=== PATIENT | female | born 1975 | race Hispanic/Latino ===

== ENCOUNTER 2017-06-11 19:12 | Emergency (ER) | payer SELFPAY ==
[~2017-06-11] VITALS: Ht 144.8 cm; Wt 61.2 kg
[2017-06-11] MEDS ORDERED: BENADRYL25 MG PO (19:54)
[2017-06-11] MEDS ORDERED: PREDNISONE20 MG PO (19:54)
== END 2017-06-11 20:01 | disposition home or self-care (01) ==
LOC: ED 19:12
DX: L50.9 Urticaria, unspecified (principal)
CPT/HCPCS: 99283; J7512; Q0163